=== PATIENT | male | born 1975 | race Caucasian/White ===

== ENCOUNTER 2023-04-01 00:25 | Emergency (ER) | payer OTHER ==
[~2023-04-01] VITALS: Ht 167.6 cm; Wt 62.6 kg
[2023-04-01 00:34] VITALS: BP_SYST 146
--- NOTE | 2023-04-01 00:42 | NUR ---
PATIENT BROUGHT IN FOR BLOOD ALCOHOL DRAW, NURSE KIM ANDREA AT BEDSIDE FOR BLOOD DRAW, BETADINE NOTED BEING USED
[2023-04-01 00:54] VITALS: BP_SYST 146
--- NOTE | 2023-04-01 00:56 | NUR ---
Written and verbal consent obtained from patient for blood alcohol, name and verified by patient. Disinfected patient's skin with IODINE that did not contain alcohol or other volatile organic compound. Collected the blood from the subject named by venipuncture, in the presence of Officer HILL. Used a sterile, dry hypodermic needle and dry vacuum blood collection. Two dry vacuum blood collection was supplied by the officer named above. Withdrew a specimen of blood from RIGHT FOREARM of the subject named above. Inverted blood tubes several times to ensure that the preservative and anticoagulant were thoroughly mixed in the blood specimen. I initialed blood tube labels for identification. The labeled blood tubes were handed directly to the Officer named above. The blood tube stopper remained in place while I had possession of the blood tubes. The Officer placed tubes into envelope and sealed it in my presence. Envelope initialed by myself and Officer named above. Patient tolerated well, bandage applied, and bleeding controlled.
--- NOTE | 2023-04-01 00:57 | NUR ---
PT LEFT IN CUSTODY WITH ONE HAND HANDCUFFED OF OFFICERS DONNA AND TRICIA BLOOD ALCOHOL DAIANA AND CHARTED. BLOOD WITHDRAWN AT 0047 ON TODAYS DATE. PT WAS ASKED IF HE AGREED TO ALCOHOL BLOOD WITHDRAWL AND NAME AND VERIFIED.
== END 2023-04-01 00:54 ==
LOC: SED 00:25
DX: Z02.83 Encounter for blood-alcohol and blood-drug test (principal)